=== PATIENT | female | born 1990 | race African-American/Black ===

== ENCOUNTER 2017-02-19 15:39 | Emergency (ER) | payer MEDICAID ==
[~2017-02-19] VITALS: Ht 167.6 cm; Wt 68.5 kg
[~2017-02-19 15:39] MED LIST: PROMETHAZINE; ULTRAM
[2017-02-19 16:52] VITALS: BP 112/53
[2017-02-19] MEDS ORDERED: SODIUM CHLORIDE 0.9% 1,000 ML IV ONE (17:14)
[2017-02-19 17:45] LABS: CHLORIDE 107 mEq/L (98-107); INDEX HEMOLYSI 1 (1-3); INDEX ICTERIC 1 (1-4); INDEX LIPEMIC 1 (1-3)
[2017-02-19 17:48] LABS: PARTIAL THROMBOPLASTIN TIME 27.5 sec (24.0-34.0); PROTHROMBIN TIME 10.5 sec
[2017-02-19 17:49] LABS: HEMATOCRIT. 37.3 % (36.0-48.0); HEMOGLOBIN. 12.4 g/dL (12.0-16.0); LYMPHOCYTES % 38.3 % (20.0-50.0); MEAN CORPUSCULAR HEMOGLOBIN 29.3 pg (28.0-32.0); MEAN CORPUSCULAR HGB CONC 33.3 g/dL (31.0-37.0); MEAN PLATELET VOLUME 8.3 fl (7.4-10.4); MONOCYTES % 12.4 % (2.0-8.0); NEUTROPHILS % 44.3 % (40.0-76.0); PLATELET 230 x1000/uL (130-400); RED BLOOD CELL COUNT 4.24 mill/uL (4.2-5.4); RED CELL DISTRIBUTION WIDTH 13.8 % (11.6-14.6); WHITE BLOOD COUNT 5.1 x1000/uL (4.5-11.0)
[2017-02-19 17:50] LABS: ANION GAP 12; CALCIUM 8.9 mg/dL (8.5-10.1); CARBON DIOXIDE 27 mEq/L (21-32); UREA NITROGEN BLOOD 10 mg/dL (7-21); eGFR > 60 mL/min (>60)
[2017-02-19 18:57] LABS: CLARITY URINE CLEAR (CLEAR); COLOR URINE YELLOW (YELLOW); GLUCOSE URINE NEGATIVE (NEGATIVE); KETONES URINE NEGATIVE (NEGATIVE); LEUKOCYTE ESTERASE URINE 1+ (NEGATIVE); NITRITE URINE NEGATIVE (NEGATIVE); OCCULT BLOOD URINE 1+ (NEGATIVE); PROTEIN URINE NEGATIVE (NEGATIVE); SPECIFIC GRAVITY URINE 1.027 (1.005-1.030)
[2017-02-19 20:02] LABS: SQUAMOUS EPITHELIAL CELL URINE 1+ /lpf (RARE/1+)
[2017-02-19 20:04] LABS: MUCUS URINE 1+ /lpf (< = 2+)
[2017-02-19 20:05] LABS: BACTERIA URINE 1+
== END 2017-02-19 20:55 | disposition home or self-care (01) ==
LOC: ER 15:42
DX: S60.454A Superficial foreign body of right ring finger, initial encounter (principal); N39.0 Urinary tract infection, site not specified; I10 Essential (primary) hypertension; F12.10 Cannabis abuse, uncomplicated; W45.8XXA Other foreign body or object entering through skin, initial encounter; Y93.89 Activity, other specified; Y92.018 Other place in single-family (private) house as the place of occurrence of the external cause; F17.210 Nicotine dependence, cigarettes, uncomplicated
CPT/HCPCS: 36415; 71010; 73140; 80048; 81001; 85025; 85610; 85730; 99285; J7030; Z7610

== ENCOUNTER 2017-10-26 08:11 | Emergency (ER) | payer MEDICAID ==
[~2017-10-26] VITALS: Ht 170.2 cm; Wt 68.0 kg
[2017-10-26] MEDS ORDERED: ONDANSETRON HCL 4MG/2ML VIAL IV STA (11:57)
[2017-10-26] MEDS ORDERED: SODIUM CHLORIDE 0.9% 1,000 ML IV ONE (11:57)
[2017-10-26 12:15] LABS: HEMATOCRIT. 39.1 % (36.0-48.0); HEMOGLOBIN. 13.3 g/dL (12.0-16.0); MEAN CORPUSCULAR HEMOGLOBIN 30.2 pg (28.0-32.0); MEAN CORPUSCULAR VOLUME 88.6 fL (81.0-99.0); MEAN PLATELET VOLUME 8.2 fl (7.4-10.4); PLATELET 190 x1000/uL (130-400); RED BLOOD CELL COUNT 4.41 mill/uL (4.2-5.4); RED CELL DISTRIBUTION WIDTH 13.5 % (11.6-14.6)
[2017-10-26 12:20] LABS: CLARITY URINE CLEAR (CLEAR); COLOR URINE YELLOW (YELLOW); KETONES URINE 2+ (NEGATIVE); LEUKOCYTE ESTERASE URINE NEGATIVE (NEGATIVE); NITRITE URINE NEGATIVE (NEGATIVE); OCCULT BLOOD URINE 3+ (NEGATIVE); PROTEIN URINE TRACE (NEGATIVE); SPECIFIC GRAVITY URINE 1.037 (1.005-1.030)
[2017-10-26 12:22] LABS: INR 1.1; PROTHROMBIN TIME 11.7 sec (9.4-11.6)
[2017-10-26 12:30] LABS: CARBON DIOXIDE 26 mEq/L (21-32); CHLORIDE 102 mEq/L (98-107)
[2017-10-26 12:50] LABS: PLATELET ESTIMATE NORMAL
[2017-10-26] MEDS ORDERED: IOHEXOL-300 100 ML BOTTLE ONE (14:38)
[2017-10-26 15:40] VITALS: BP 118/62
[2017-10-26] MEDS ORDERED: POTASSIUM CHLORIDE 20MEQ TABLET SR PO ONE (16:00)
== END 2017-10-26 16:50 | disposition home or self-care (01) ==
LOC: ER 08:16
DX: R11.2 Nausea with vomiting, unspecified (principal); N92.0 Excessive and frequent menstruation with regular cycle; R10.9 Unspecified abdominal pain; F12.10 Cannabis abuse, uncomplicated
CPT/HCPCS: 36415; 74177; 76830; 76856; 80053; 81001; 81025; 83690; 85025; 85610; 96361; 96374; 99285; J2405; J7030; Q9967; Z7610

== ENCOUNTER 2020-08-13 19:13 | Emergency (ER) | payer SELFPAY ==
[~2020-08-13] VITALS: Ht 167.6 cm; Wt 68.0 kg
[2020-08-13] MEDS ORDERED: KETOROLAC 15MG/ML VIAL IV ONE (19:45)
[2020-08-13 21:30] VITALS: BP 103/48
[2020-08-13] MEDS ORDERED: DOXYCYCLINE HYCLATE 100MG CAPSULE PO ONE (21:30)
[2020-08-13 22:09] LABS: BASOPHILS % 0.6 % (0.0-2.0); EOSINOPHILS % 8.5 % (0.0-5.0); HEMATOCRIT. 39.7 % (36.0-48.0); HEMOGLOBIN. 13.4 g/dL (12.0-16.0); MEAN CORPUSCULAR VOLUME 91.8 fL (81.0-99.0); MEAN PLATELET VOLUME 9.8 fl (7.4-10.4); MONOCYTES % 11.4 % (2.0-8.0); NEUTROPHILS % 55.5 % (40.0-76.0); PLATELET 187 x1000/uL (130-400); RED BLOOD CELL COUNT 4.32 mill/uL (4.2-5.4); RED CELL DISTRIBUTION WIDTH 14.1 % (11.6-14.6)
[2020-08-13 22:10] LABS: CHLORIDE 107 mEq/L (98-107)
== END 2020-08-13 23:05 | disposition home or self-care (01) ==
LOC: ER 19:13
DX: J18.9 Pneumonia, unspecified organism (principal); R07.89 Other chest pain; F12.10 Cannabis abuse, uncomplicated
CPT/HCPCS: 36415; 71045; 80053; 81025; 83880; 84484; 85025; 87635; 93005; 96374; 99285; C9803; J1885

== ENCOUNTER 2020-12-18 17:14 | Emergency (ER) | payer SELFPAY ==
[~2020-12-18] VITALS: Ht 167.6 cm; Wt 68.0 kg
[2020-12-18] MEDS ORDERED: ACETAMINOPHEN 325MG TABLET PO STA (17:33)
[2020-12-18] MEDS ORDERED: SODIUM CHLORIDE 0.9% 1,000 ML IV ONE (17:45)
[2020-12-18] MEDS ORDERED: ALBUTEROL 6.7GM HFA INHALER ORI ONE (18:15)
[2020-12-18] MEDS ORDERED: PREDNISONE 20MG TABLET PO ONE (18:15)
[2020-12-18 18:33] LABS: BASOPHILS % 0.7 % (0.0-2.0); EOSINOPHILS % 3.5 % (0.0-5.0); HEMOGLOBIN. 12.7 g/dL (12.0-16.0); LYMPHOCYTES % 44.7 % (20.0-50.0); MEAN CORPUSCULAR HEMOGLOBIN 29.8 pg (28.0-32.0); MEAN CORPUSCULAR VOLUME 88.9 fL (81.0-99.0); MEAN PLATELET VOLUME 8.8 fl (7.4-10.4); MONOCYTES % 10.3 % (2.0-8.0); NEUTROPHILS % 40.8 % (40.0-76.0); PLATELET 204 x1000/uL (130-400); RED BLOOD CELL COUNT 4.27 mill/uL (4.2-5.4); RED CELL DISTRIBUTION WIDTH 13.6 % (11.6-14.6)
[2020-12-18 18:42] LABS: PROTHROMBIN TIME 10.5 sec (9.6-11.0)
[2020-12-18 18:53] LABS: CHLORIDE 108 mEq/L (98-107)
[2020-12-18] MEDS ORDERED: P50 MT (19:19)
[2020-12-18] MEDS ORDERED: LEVO500T89 MT (19:19)
[2020-12-18] MEDS ORDERED: ALBU90AE2 INH (19:21)
[2020-12-18 19:42] VITALS: BP 122/67
== END 2020-12-18 19:47 | disposition home or self-care (01) ==
LOC: ER 17:14 → CANBEDREQ 18:15 → ER 19:47
DX: J18.9 Pneumonia, unspecified organism (principal); J45.909 Unspecified asthma, uncomplicated; Z98.890 Other specified postprocedural states; Z79.899 Other long term (current) drug therapy; Z20.822 Contact with and (suspected) exposure to COVID-19
CPT/HCPCS: 36415; 71045; 80053; 83605; 85025; 85610; 87040; 93005; 96360; 99285; C9803; J7030; U0003; Z7610; J7512

== ENCOUNTER 2021-01-16 02:46 | Emergency (ER) | payer MEDICAID ==
[~2021-01-16] VITALS: Ht 170.2 cm; Wt 73.0 kg
[~2021-01-16 02:46] MED LIST changes: +ALBU90AE2 INH; +LEVO500T89 MT; +P50 MT; -PROMETHAZINE; -ULTRAM
[2021-01-16] MEDS ORDERED: MAGNESIUM/ALUMINUM HYDROXIDE/SIMETHICONE 30ML UDC PO STA (03:23)
[2021-01-16] MEDS ORDERED: VISCOUS LIDOCAINE 2% 15 ML UDC PO STA (03:23)
[2021-01-16 03:30] LABS: CLARITY URINE CLEAR (CLEAR); COLOR URINE YELLOW (YELLOW); KETONES URINE NEGATIVE (NEGATIVE); LEUKOCYTE ESTERASE URINE NEGATIVE (NEGATIVE); NITRITE URINE NEGATIVE (NEGATIVE); OCCULT BLOOD URINE 3+ (NEGATIVE); PH URINE 6.5 (4.5-8.0); PROTEIN URINE TRACE (NEGATIVE)
[2021-01-16 03:43] LABS: BASOPHILS % 0.5 % (0.0-2.0); EOSINOPHILS % 3.3 % (0.0-5.0); HEMATOCRIT. 34.7 % (36.0-48.0); HEMOGLOBIN. 11.5 g/dL (12.0-16.0); LYMPHOCYTES % 28.3 % (20.0-50.0); MEAN CORPUSCULAR HEMOGLOBIN 30.1 pg (28.0-32.0); MEAN CORPUSCULAR VOLUME 90.9 fL (81.0-99.0); MEAN PLATELET VOLUME 8.2 fl (7.4-10.4); MONOCYTES % 11.1 % (2.0-8.0); NEUTROPHILS % 56.8 % (40.0-76.0); PLATELET 214 x1000/uL (130-400); RED BLOOD CELL COUNT 3.82 mill/uL (4.2-5.4); RED CELL DISTRIBUTION WIDTH 14.3 % (11.6-14.6)
[2021-01-16 03:45] LABS: CHLORIDE 109 mEq/L (98-107)
[2021-01-16 03:49] LABS: ETHANOL BLOOD 42 mg/dL
[2021-01-16] MEDS ORDERED: FAMO-135 MT (05:06)
[2021-01-16 05:33] VITALS: BP 105/71
[2021-01-16 05:33] LABS: *AMPHETAMINES SCREEN URINE NEGATIVE (NEGATIVE)
[2021-01-16 05:34] LABS: *BARBITURATES SCREEN URINE NEGATIVE (NEGATIVE); *BENZODIAZEPINES SCREEN URINE NEGATIVE (NEGATIVE); *COCAINE SCREEN URINE NEGATIVE (NEGATIVE); METHADONE URINE SCREEN NEGATIVE (NEGATIVE); OPIATES URINE SCREEN NEGATIVE (NEGATIVE); PHENCYCLIDINE URINE SCREEN NEGATIVE (NEGATIVE)
[2021-01-16 05:41] LABS: CANNABINOID URINE SCREEN PRESUMTIVE POSITIVE (NEGATIVE)
== END 2021-01-16 05:36 | disposition home or self-care (01) ==
LOC: ER 02:46
DX: K25.9 Gastric ulcer, unspecified as acute or chronic, without hemorrhage or perforation (principal); N83.202 Unspecified ovarian cyst, left side; R03.0 Elevated blood-pressure reading, without diagnosis of hypertension; Z86.16 Personal history of COVID-19; Z87.01 Personal history of pneumonia (recurrent); Z98.890 Other specified postprocedural states
CPT/HCPCS: 36415; 74176; 80053; 80305; 80320; 81003; 81025; 83690; 85025; 93005; 99285; Z7610; G0480

== ENCOUNTER 2021-10-05 23:06 | Emergency (ER) | payer MEDICAID ==
[~2021-10-05] VITALS: Ht 167.6 cm; Wt 76.0 kg
[~2021-10-05 23:06] MED LIST changes: +FAMO-135 MT
[2021-10-06 00:05] VITALS: BP 122/53
[2021-10-06] MEDS ORDERED: ACETAMINOPHEN 325MG TABLET PO STA (00:14)
[2021-10-06 00:45] LABS: CLARITY URINE CLEAR (CLEAR); COLOR URINE YELLOW (YELLOW); KETONES URINE TRACE (NEGATIVE); LEUKOCYTE ESTERASE URINE TRACE (NEGATIVE); NITRITE URINE NEGATIVE (NEGATIVE); OCCULT BLOOD URINE 3+ (NEGATIVE); PH URINE 5.5 (4.5-8.0); PROTEIN URINE TRACE (NEGATIVE); SPECIFIC GRAVITY URINE 1.026 (1.005-1.030)
[2021-10-06] MEDS ORDERED: ACET-2708 PO (06:51)
[2021-10-06] MEDS ORDERED: CEPH500T PO (06:51)
== END 2021-10-06 00:59 | disposition left against medical advice (07) ==
LOC: ER 23:06
DX: O20.9 Hemorrhage in early pregnancy, unspecified (principal); R10.30 Lower abdominal pain, unspecified; Z3A.00 Weeks of gestation of pregnancy not specified
CPT/HCPCS: 81003; 99283

== ENCOUNTER 2021-10-06 01:55 | Emergency (ER) | payer MEDICAID ==
[~2021-10-06] VITALS: Ht 167.6 cm; Wt 76.0 kg
[2021-10-06 03:35] LABS: BASOPHILS % 0.5 % (0.0-2.0); EOSINOPHILS % 3.6 % (0.0-5.0); HEMATOCRIT. 36.5 % (36.0-48.0); LYMPHOCYTES % 31.5 % (20.0-50.0); MEAN CORPUSCULAR HEMOGLOBIN 29.7 pg (28.0-32.0); MEAN CORPUSCULAR VOLUME 90.5 fL (81.0-99.0); MEAN PLATELET VOLUME 8.3 fl (7.4-10.4); MONOCYTES % 9.8 % (2.0-8.0); NEUTROPHILS % 54.6 % (40.0-76.0); PLATELET 229 x1000/uL (130-400); RED BLOOD CELL COUNT 4.04 mill/uL (4.2-5.4); RED CELL DISTRIBUTION WIDTH 14.4 % (11.6-14.6)
[2021-10-06 04:04] LABS: CHLORIDE 108 mEq/L (98-107)
[2021-10-06 04:29] LABS: B-HCG QUANTITATIVE 15412 mIU/mL (<3)
[2021-10-06 06:13] LABS: CLARITY URINE CLEAR (CLEAR); COLOR URINE YELLOW (YELLOW)
[2021-10-06 06:14] LABS: KETONES URINE TRACE (NEGATIVE); NITRITE URINE NEGATIVE (NEGATIVE); OCCULT BLOOD URINE 2+ (NEGATIVE); PH URINE 6.5 (4.5-8.0); PROTEIN URINE NEGATIVE (NEGATIVE); SPECIFIC GRAVITY URINE 1.022 (1.005-1.030)
[2021-10-06 06:15] LABS: LEUKOCYTE ESTERASE URINE 1+ (NEGATIVE)
[2021-10-06] MEDS ORDERED: CEPH500T PO (06:51)
[2021-10-06] MEDS ORDERED: ACET-2708 PO (06:51)
[2021-10-06 07:25] VITALS: BP 123/65
== END 2021-10-06 07:34 | disposition home or self-care (01) ==
LOC: ER 01:55
DX: O20.0 Threatened abortion (principal); O34.11 Maternal care for benign tumor of corpus uteri, first trimester; D25.9 Leiomyoma of uterus, unspecified; O23.41 Unspecified infection of urinary tract in pregnancy, first trimester; N39.0 Urinary tract infection, site not specified; Z3A.10 10 weeks gestation of pregnancy
CPT/HCPCS: 36415; 76801; 80053; 81003; 84702; 85025; 86850; 86900; 99284

== ENCOUNTER 2021-10-09 03:19 | Inpatient (IN) | payer MEDICAID ==
[~2021-10-09] VITALS: Ht 167.6 cm; Wt 73.0 kg
[~2021-10-09 03:19] MED LIST changes: +ACET-2708 PO; +CEPH500T PO
[2021-10-09] MEDS ORDERED: MORPHINE SULFATE 2 MG/ML CPJ (NOT FOR IM USE) IV ONE (04:30)
[2021-10-09] MEDS ORDERED: ACETAMINOPHEN 325MG TABLET PO ONE (04:30)
[2021-10-09 06:05] LABS: BASOPHILS % 0.4 % (0.0-2.0); EOSINOPHILS % 1.7 % (0.0-5.0); HEMATOCRIT. 35.7 % (36.0-48.0); HEMOGLOBIN. 11.5 g/dL (12.0-16.0); LYMPHOCYTES % 13.2 % (20.0-50.0); MEAN CORPUSCULAR HEMOGLOBIN 29.7 pg (28.0-32.0); MEAN CORPUSCULAR VOLUME 92.5 fL (81.0-99.0); MEAN PLATELET VOLUME 8.2 fl (7.4-10.4); MONOCYTES % 8.4 % (2.0-8.0); NEUTROPHILS % 76.3 % (40.0-76.0); PLATELET 219 x1000/uL (130-400); RED BLOOD CELL COUNT 3.87 mill/uL (4.2-5.4); RED CELL DISTRIBUTION WIDTH 14.5 % (11.6-14.6)
[2021-10-09 06:07] LABS: CHLORIDE 108 mEq/L (98-107)
[2021-10-09 06:31] LABS: B-HCG QUANTITATIVE 12655 mIU/mL (<3)
[2021-10-09] MEDS ORDERED: FENTANYL CITRATE/PF 50MCG/ML 2ML VIAL IV ONE (09:00)
[2021-10-09] MEDS ORDERED: SODIUM CHLORIDE 0.9% 1,000 ML IV ONE (09:00)
[2021-10-09] MEDS ORDERED: ROCURONIUM BROMIDE 10MG/ML VIAL 5ML IV ONE (13:37)
[2021-10-09] MEDS ORDERED: DEXAMETHASONE 4MG/ML 1ML VIAL ONE (13:37)
[2021-10-09] MEDS ORDERED: ONDANSETRON HCL 4MG/2ML INJ ONE (13:37)
[2021-10-09] MEDS ORDERED: HYDROMORPHONE HCL/PF 2MG/ML (OR) ONE (13:39)
[2021-10-09] MEDS ORDERED: CEFAZOLIN SODIUM 1000MG/VIAL ONE (13:49)
[2021-10-09] MEDS ORDERED: MEPERIDINE HCL/PF 25MG/ML CPJ IV PRN (15:15)
[2021-10-09] MEDS ORDERED: LABETALOL 5MG/ML SYR 20 MG/4 ML SYRINGE IV PRN (15:15)
[2021-10-09] MEDS ORDERED: ONDANSETRON HCL 4MG/2ML INJ IV PRN (15:15)
[2021-10-09] MEDS: HYDROMORPHONE HCL/PF 2MG/ML CPJ IV PRN ×4 (16:07→16:37)
[2021-10-09] MEDS ORDERED: RHO(D) IMMUNE GLOBULIN 300 MCG/SYR IM ONE (17:30)
[2021-10-09 20:00] VITALS: BP 102/52
[2021-10-09] MEDS ORDERED: DEXT 5%/LACTATED RINGERS 300 ML IV NR (22:15)
[2021-10-09] MEDS: MORPHINE SULFATE 2 MG/ML CPJ (NOT FOR IM USE) IV PRN (22:33)
[2021-10-09] MEDS: DEXT 5%/LACTATED RINGERS 1,000 ML IV SCH (23:03)
[2021-10-09 23:54] LABS: HEMATOCRIT 30.1 % (36.0-48.0); HEMOGLOBIN 10.2 g/dL (12.0-16.0)
[2021-10-10] VITALS: BP 105/44
[2021-10-10 04:00] VITALS: BP 101/44
[2021-10-10] MEDS: DEXT 5%/LACTATED RINGERS 1,000 ML IV SCH ×3 (07:16→22:59)
[2021-10-10] MEDS: MORPHINE SULFATE 2 MG/ML CPJ (NOT FOR IM USE) IV PRN ×3 (07:41→16:02)
[2021-10-10 08:00] VITALS: BP 113/53
[2021-10-10 08:48] LABS: CHLORIDE 108 mEq/L (98-107)
[2021-10-10 09:10] LABS: BASOPHILS % 0.1 % (0.0-2.0); EOSINOPHILS % 0.1 % (0.0-5.0); HEMATOCRIT. 29.4 % (36.0-48.0); HEMOGLOBIN. 10.1 g/dL (12.0-16.0); LYMPHOCYTES % 14.7 % (20.0-50.0); MEAN CORPUSCULAR HEMOGLOBIN 31.4 pg (28.0-32.0); MEAN CORPUSCULAR VOLUME 91.2 fL (81.0-99.0); MEAN PLATELET VOLUME 8.3 fl (7.4-10.4); NEUTROPHILS % 74.1 % (40.0-76.0); PLATELET 205 x1000/uL (130-400); RED BLOOD CELL COUNT 3.22 mill/uL (4.2-5.4); RED CELL DISTRIBUTION WIDTH 14.2 % (11.6-14.6)
[2021-10-10] MEDS: IBUPROFEN 800MG TABLET PO PRN (15:49)
[2021-10-10 16:00] VITALS: BP 103/40
[2021-10-10] MEDS: ACETAMINOPHEN 325MG TABLET PO PRN (18:31)
[2021-10-10] MEDS: AMPICILLIN 2,000 MG in SODIUM CHLORIDE 0.9% 100 ML IV SCH (23:00)
[2021-10-11] VITALS: BP_SYST 121; BP_SYST 99; BP_DIAS 38; BP_DIAS 54
[2021-10-11] MEDS: GENTAMICIN 80MG PREMIX 100 ML IV SCH ×4 (00:05→23:19)
[2021-10-11] MEDS: ACETAMINOPHEN 325MG TABLET PO PRN (00:12)
[2021-10-11 04:00] VITALS: BP 102/52
[2021-10-11] MEDS: MORPHINE SULFATE 2 MG/ML CPJ (NOT FOR IM USE) IV PRN (05:48)
[2021-10-11] MEDS: AMPICILLIN 2,000 MG in SODIUM CHLORIDE 0.9% 100 ML IV SCH ×3 (06:40→17:50)
[2021-10-11] MEDS: DEXT 5%/LACTATED RINGERS 1,000 ML IV SCH ×3 (06:46→23:20)
[2021-10-11] MEDS: IBUPROFEN 800MG TABLET PO PRN ×2 (07:55→16:14)
[2021-10-11 08:00] VITALS: BP 110/57
[2021-10-11] MEDS ORDERED: BISACODYL 5MG TABLET PO PRN (08:30)
[2021-10-11 12:00] VITALS: BP 113/51
[2021-10-11 16:00] VITALS: BP 119/53
[2021-10-11 20:00] VITALS: BP 114/52
[2021-10-12] VITALS: BP 121/54
[2021-10-12] MEDS: AMPICILLIN 2,000 MG in SODIUM CHLORIDE 0.9% 100 ML IV SCH ×3 (00:34→12:48)
[2021-10-12] MEDS: IBUPROFEN 800MG TABLET PO PRN ×2 (00:34→08:43)
[2021-10-12 04:00] VITALS: BP 95/56
[2021-10-12] MEDS: GENTAMICIN 80MG PREMIX 100 ML IV SCH ×2 (06:35→15:26)
[2021-10-12] MEDS: DEXT 5%/LACTATED RINGERS 1,000 ML IV SCH ×2 (06:44→15:26)
[2021-10-12 07:37] LABS: BASOPHILS % 0.5 % (0.0-2.0); HEMATOCRIT. 26.5 % (36.0-48.0); LYMPHOCYTES % 30.1 % (20.0-50.0); MEAN CORPUSCULAR HEMOGLOBIN 31.1 pg (28.0-32.0); MEAN CORPUSCULAR VOLUME 91.3 fL (81.0-99.0); MONOCYTES % 11.5 % (2.0-8.0); NEUTROPHILS % 53.9 % (40.0-76.0); PLATELET 197 x1000/uL (130-400); RED CELL DISTRIBUTION WIDTH 14.3 % (11.6-14.6)
[2021-10-12 07:57] LABS: CHLORIDE 110 mEq/L (98-107)
[2021-10-12 08:00] VITALS: BP 116/56
[2021-10-12 08:16] LABS: GENTAMICIN RANDOM 0.3 ug/mL
[2021-10-12 12:00] VITALS: BP 116/52
[2021-10-12] MEDS: ACETAMINOPHEN 325MG TABLET PO PRN (12:48)
[2021-10-12 16:00] VITALS: BP 118/50
[2021-10-12 17:04] VITALS: BP 118/50
== END 2021-10-12 19:17 | disposition home or self-care (01) | DRG 547 ==
LOC: ER 03:19 → 6EST 09:51 → ENRESERV 17:10
PROVIDERS: ADMIT Obstetrics & Gynecology; ATTEND Obstetrics & Gynecology
PROC: 10T20ZZ Resection of Products of Conception, Ectopic, Open Approach (ICD-10-PCS; principal; 2021-10-09)
PROC: 0UB50ZZ Excision of Right Fallopian Tube, Open Approach (ICD-10-PCS; 2021-10-09)
PROC: 0UB00ZZ Excision of Right Ovary, Open Approach (ICD-10-PCS; 2021-10-09)
DX: O00.101 Right tubal pregnancy without intrauterine pregnancy (principal); D62 Acute posthemorrhagic anemia; O99.891 Other specified diseases and conditions complicating pregnancy; D27.0 Benign neoplasm of right ovary; J45.909 Unspecified asthma, uncomplicated; O34.11 Maternal care for benign tumor of corpus uteri, first trimester; O99.511 Diseases of the respiratory system complicating pregnancy, first trimester; O99.011 Anemia complicating pregnancy, first trimester; D25.9 Leiomyoma of uterus, unspecified; Z20.822 Contact with and (suspected) exposure to COVID-19
CPT/HCPCS: 36415; 72192; 76801; 80048; 80053; 80170; 84702; 85014; 85018; 85025; 86850; 86900; 87070; 87426; 88302; 88304; 99285; J0290; J0690; J1100; J1170; J1580; J2175; J2270; J2405; J3010; J3490; J7030; J7042; J7050; J7121

== ENCOUNTER 2023-01-04 11:23 | Emergency (ER) | payer OTHER, MEDICAID ==
[~2023-01-04] VITALS: Ht 172.7 cm; Wt 68.0 kg
[2023-01-04] MEDS ORDERED: KETOROLAC 30MG/ML VIAL IM NR (12:56)
[2023-01-04] MEDS ORDERED: HYDROCODONE/ACETAMINOPHEN 5/325MG TABLET PO NR (12:56)
[2023-01-04 14:15] VITALS: BP 138/62
[2023-01-04 14:36] LABS: CLARITY URINE CLOUDY (CLEAR); COLOR URINE YELLOW (YELLOW); KETONES URINE 1+ (NEGATIVE); LEUKOCYTE ESTERASE URINE 1+ (NEGATIVE); NITRITE URINE NEGATIVE (NEGATIVE); OCCULT BLOOD URINE NEGATIVE (NEGATIVE); PH URINE 6.5 (4.5-8.0); PROTEIN URINE NEGATIVE (NEGATIVE); SPECIFIC GRAVITY URINE 1.029 (1.005-1.030); UROBILINOGEN URINE 0.2 E.U./dL (0.2-1.0)
[2023-01-04] MEDS ORDERED: HYDROCODONE/ACETAMINOPHEN 5/325MG TABLET PO ONE (17:00)
[2023-01-04] MEDS ORDERED: HYDR-4001 MT ×3 (17:33→21:20)
[2023-01-04] MEDS ORDERED: NAPR-681 PO ×3 (17:33→21:20)
[2023-01-04] MEDS ORDERED: NITR-87 MT ×3 (17:36→21:20)
[2023-01-04] MEDS ORDERED: LIDOCAINE 5% PATCH TOP SCH (18:00)
[2023-01-04] MEDS ORDERED: DEXAMETHASONE 10 MG/ML VIAL IM ONE (19:00)
[2023-01-04] MEDS ORDERED: DIAZEPAM 5 MG TABLET PO ONE (19:00)
[2023-01-04] MEDS ORDERED: CYCL10TA21 MT ×3 (21:18→21:20)
[2023-01-05] MEDS ORDERED: HYDR-4005 MT (03:56)
== END 2023-01-04 21:40 | disposition home or self-care (01) ==
LOC: ER 11:23
DX: N39.0 Urinary tract infection, site not specified (principal); M47.897 Other spondylosis, lumbosacral region; Z87.828 Personal history of other (healed) physical injury and trauma
CPT/HCPCS: 72100; 81003; 81025; 96372; 99284; J1100; J1885; Z7610